=== PATIENT | male | born 1980 ===

== ENCOUNTER 2025-11-12 14:45 | Day surgery (SDC) | payer OTHER, SELFPAY ==
[2025-11-01 10:30] VITALS: BMI 32.5
--- NOTE | 2025-11-12 | PATH_ITS ---
[facility] Accession Number: [id number] No. of containers..01 Tissue . 01 Material submitted: . rectosigmoid junction - POLYP AT RECTOSIGMOID JUNCTION . 01 Diagnosis: A: RECTOSIGMOID JUNTION, POLYPECTOMY: Tubular adenoma. [facility] 11/19/2025 1427 Local . 01 Electronically signed: . Oziel Stevens MD, Pathologist NPI- [id number] . 01 Gross description: . Received in formalin with two identifiers and polyp at rectosigmoid junction is a single hinton soft tissue fragment measuring 1.0 x 1.0 x 1.0 cm. Tissue is inked, trisected, and submitted entirely in A1. ([id number]) /MRV 11/18/20252104 Local . 01 Pathologist provided ICD-10: R19.5, K62.5 . 01 CPT . 597695 Specimen Comment: A courtesy copy of this report has been sent to [facility] Pathology Performed at: [address] [address], [place], [place] [id number] MD Rudolph Barros MD Phone: [phone]
--- NOTE | 2025-11-12 06:21 | PM.HP.IH.1 ---
History of Present Illness History of Present Illness Date Patient Seen: 11/12/25 Chief complaint: SDC Narrative: Patient presents for screening colonoscopy today, h/o +FIT. [facility] Medical History (Updated 11/01/25 @ 10:27 by Amanda Boo RN) SUMA (obstructive sleep apnea) Immunosuppressed status Psoriasis Low back pain Depression IgA nephropathy determined by biopsy of kidney (01/30/25) Psoriatic arthritis Social History Smoking Status: Former smoker Meds Home Medications and Allergies Home Medications ?Medication ?Instructions ?Recorded ?Confirmed ?Type methotrexate sodium 2.5 mg tablet mg PO 09/04/25 09/04/25 History secukinumab 150 mg/mL subcutaneous 150 mg SUBCUT QWEEK 09/04/25 11/01/25 History pen injector (Cosentyx Pen 300 mg/2 pens () peg 3350-electrolytes 236 240 ml PO Q10M #4,000 mL 09/10/25 Rx gram-22.74 gram-6.74 gram-5.86 gram solution (Golytely) Allergies Allergy/AdvReac Type Severity Reaction Status Date / Time No Known Drug Allergies Allergy Unverified 09/04/25 13:25 Exam Narrative Exam Narrative: Const General: healthy appearing, comfortable and no acute distress Orientation: alert and oriented x3 HENMT Ears: hearing grossly normal bilaterally Eyes Visual Chow: normal visual chow by confrontation Conjunctivae: conjunctivae normal Sclera: sclerae normal EOM: EOM intact bilaterally Resp Effort & Inspection: normal respiratory effort and able to speak in complete sentences Cardio Rate: regular rate GI Palpation: soft (NT) Extrem General: no pedal edema and no calf tenderness Assessment & Plan Assessment and plan (1) Positive FIT (fecal immunochemical test): Status: Acute Plan Plan colonoscopy, possible biopsy. The risks, benefits and options regarding the procedure were explained to the patient in detail. Risk discussion included but not limited to: bleeding, perforation, unable to reach cecum, missed lesion. The patient was encouraged to ask questions and they were answered to their satisfaction. The patient understands and is agreeable to proceed. Time-Based Coding :: [TOTAL MINUTES] spent with patient and on the chart (including review of chart, obtaining history, exam, reviewing outside data, placing orders, documenting exam and treatment plan, and counseling patient) on [DATE]. [employer] Document charge(s): Yes Charge Codes Initial inpatient/observation care: [id number]
[2025-11-12 15:18] VITALS: BP 115/79; PULSE 70; RESP 12; TEMP 36.2; O2SAT 97
[2025-11-12] MEDS: LACTATED RINGERS 1,000 ML 42 ML IV (16:00)
--- NOTE | 2025-11-12 17:01 | P.OP.COLON_ITS ---
Operative Date/Time/Diagnoses Date of procedure: 11/12/25 Time of procedure: 17:32 Pre-op diagnosis: +FIT Post-op diagnosis: same Procedure & Clinicians Study performed: Colonoscopy with polypectomy Same procedure(s) as scheduled: Yes Indications: 45yo M, +FIT test Surgeon: Tong Roth Anesthesia Type: MAC +/- Procedure Notes SCOAP/Timeout: Performed Procedure in detail: Colonoscopy Patient placed in left lateral recumbent position. Time out was performed. Procedural sedation was administered by anesthesia. Examination began with a thorough inspection of the perianal area. There was no evidence of fissures, fistulae, external hemorrhoids or cutaneous malignancy. The colonoscope was then placed into the rectum and the lumen was insufflated with carbon dioxide. The scope was carefully advanced forward. Ultimately the cecum was intubated and confirmed by identification of the ileocecal valve, the appendiceal orifice and the confluence of the taenia. The scope was then slowly withdrawn examining the colon thoroughly in all directions. In the rectum, retroflexion of the scope was performed for inspection of the distal rectum and anal canal. ?Significant colonoscopy findings: ?1. Quality of the preparation-good, [place] 1-2, improved with irrigation/suction ?2. Inadequate prep - whereas we reached ileocecal valve, all but large lesions would be missed due to stool burden 3. Despite inadequate prep, we were able to identify a 1cm pedunculated polyp at rectosigmoid junction at 15cm, removed with cold snare and retrieved for pathology, biopsy site required clip for hemostasis 4. Need to repeat colonoscopy with adequate prep Scope withdrawal time: 6 minutues Findings: polyp(s) Specimen(s): other (polyp) Estimated Blood Loss: 5 Complications: none Impression: Large, 1cm, colon polyp at rectosigmoid Inadequate prep Need Post-procedure Plan for aftercare: PACU then home Follow up: as needed Disposition: PACU
[2025-11-12 17:27] VITALS: BP 111/66; PULSE 66; RESP 18; TEMP 36.2; O2SAT 95
[2025-11-12 17:40] VITALS: BP 115/70; PULSE 71; RESP 16; O2SAT 97
== END 2025-11-12 17:52 | disposition home or self-care (01) ==
PROVIDERS: PCP Family Medicine; Referring Provider Family Medicine; Visit Provider Surgery
PROC: 0DJD8ZZ Inspection of Lower Intestinal Tract, Via Natural or Artificial Opening Endoscopic (ICD-10-PCS; CPT 45378; principal; 2025-11-12 16:00)
DX: Z12.11 Encounter for screening for malignant neoplasm of colon (principal); R19.5 Other fecal abnormalities; Z87.891 Personal history of nicotine dependence; D12.7 Benign neoplasm of rectosigmoid junction
CPT/HCPCS: 45385; J2704; J7120